=== PATIENT | male | born 1970 | race Caucasian/White ===

== ENCOUNTER → 2019-05-29 | Outpatient (CLI) | payer MEDICAID | LOC: COL.RAD 10:08 | DX: R44.3 Hallucinations, unspecified (principal); R25.2 Cramp and spasm; G93.9 Disorder of brain, unspecified; J34.89 Other specified disorders of nose and nasal sinuses ==

== ENCOUNTER → 2019-06-02 | Outpatient (CLI) | payer MEDICAID ==
--- NOTE | 2019-06-02 14:21 | NUR ---
Patient was innapropriate today during EEG exam. Patient took off shirt, although it was not necessary. Patient then made inappropriate comments about which part of his brain dealt with growth and that he was feeling good energy. Patient after light shut off placed hands on genital area and unbuttoned pants. Patient was never threatening or aggressive. However, if this patient comes into outpatient diagnostics again I do not feel comfortable completing his exam alone. Talked to both scheduling and security today regarding this patient and flagging his chart, he had similar inappropriate behavior in MRI yesterday and tech had a Male tech come sit with her during procedure. Mitchell Garcia, WEED SPRAYER
== END ==
LOC: COL.CARD 12:34
DX: R44.3 Hallucinations, unspecified (principal); R25.2 Cramp and spasm

== ENCOUNTER 2021-11-30 00:50 | Inpatient (IN) | payer MEDICARE, MEDICAID ==
[~2021-11-30] VITALS: Ht 170.2 cm; Wt 83.4 kg
[2021-11-30] VITALS (1243 sets, daily range): BP systolic 108–136; BP diastolic 73–91; PULSE 63–76; TEMP 97.5–98.1; O2SAT 77–100
[2021-11-30 03:23] LABS: ARTERIAL BLD GAS O2 SATURATION 99.4 % (92-100); ARTERIAL BLOOD GAS BASE EXCESS -2.4 (-2-2); ARTERIAL BLOOD GAS HCO3 22.4 meq/L (22-26); ARTERIAL BLOOD GAS PCO2 38.7 mmHg (35-45); ARTERIAL BLOOD GAS PO2 457.8 mmHg (80-100); ARTERIAL BLOOD GAS pH 7.38 (7.35-7.45)
[2021-11-30 06:08] LABS: BASO % 0.4 % (0.0-2.0); EOS # 0.4 K/mm3 (0.0-0.7); EOS % 3.8 % (0.0-4.0); GRAN # 6.2 K/mm3 (1.4-6.5); GRAN % 62.5 % (42.2-75.2); HEMATOCRIT 42.3 % (42.0-52.0); HEMOGLOBIN 13.8 g/dl (13.5-18.0); LYMPH # 2.5 K/mm3 (1.2-3.4); LYMPH % 25.2 % (20.0-51.0); MEAN CELL VOLUME 94 fl (80.0-100.0); MEAN CORPUSCULAR HEMOGLOBIN 31 pg (27-31); MEAN CORPUSCULAR HGB CONC 33 g/dl (33.0-37.0); MEAN PLATELET VOLUME 9.5 fl (7.4-10.4); MONO # 0.8 K/mm3 (0.1-0.6); MONO % 7.8 % (1.7-9.3); PLATELET COUNT 280 K/mm3 (130-400); RED BLOOD COUNT 4.52 M/mm3 (4.20-5.60); REDCELL DISTRIBUTION WIDTH-CV 13.3 % (11.5-14.5)
[2021-11-30 06:30] LABS: ALBUMIN 3.1 gm/dL (3.5-5.0); BILIRUBIN,TOTAL 0.6 mg/dL (0.2-1.2); CALCIUM 8.4 mg/dL (8.4-10.2); CREATININE, serum 0.84 mg/dL (0.72-1.25); MAGNESIUM 1.9 mg/dL (1.6-2.6); POTASSIUM 4.4 mmol/L (3.5-4.5); TOTAL PROTEIN 5.6 gm/dL (6.2-8.1)
--- NOTE | 2021-11-30 09:57 | NUR ---
The patient is intubated an on the ventilator after a propanolol overdose. It is unknown if the overdose was intentional or accidental. The patient's mother, Maira (ph#[phone]), is at bedside. BALA met with Maira to complete intake. The patient lives in [place] with his mother, Maira. Maira reports that the patient is independent with ADLs and does not have any DME. She states that the patient's PCP was Dr. Kyle Bobo, but that the patient has not seen Dr. Bobo in a very long time. She states that Dr. Bobo told the patient he is no longer his patient, due to this. She states that he has not seen anyone or been established with anyone since. The patient does receive mental health services for his schizophrenia at [facility] in and they prescribe him his psych medications. He receives those at [facility] in . Maira reports that the patient does not have a DPOA-HC. She states that the patient is still legally , but that they are . His 's name is Blanca Oneill (ph#[phone]). Maira states that the patient has five children. They are 21, 14, 12, 9, and 6-years old. The 21-year-old is Jesús and the patient adopted him before he Blanca. BALA informed Maira that Blanca would be the patient's legal next of kin, since they are still . Maira verbalized understanding and states that Blanca and the patient still get along and have a relationship and she gets along with Blanca too. BALA contacted Blanca to inform her that she is the patient's legal next of kin. Blanca verbalized understanding and states that she is okay with this and making decisions for the patient. She states that she will be up to the hospital soon to visit the patient. BALA updated the patient's RN about Blanca being the legal next of kin and provided her phone number in the chart. The patient's mother requested Bean Picker Machine Operator services. BALA notified Bean Picker Machine Operator Lashay. BALA to continue to follow. *Discharge plan: Undetermined at this time*
--- NOTE | 2021-11-30 10:09 | NUR ---
THIS AM PATIENT GRIMACES TO PAIN AND RAISES EYEBROWS WHEN ASKED TO OPEN EYES. PATIENT DOES NOT FOLLOW COMMANDS. ON MINIMAL SEDATION. VSS. ANNY STRONG, BEDSIDE AND RECEIVES UPDATES FROM DR. NAVA AND THIS RN. VISITING POLICY REVIEWD.
--- NOTE | 2021-11-30 10:23 | NUR ---
Initial visit; Patient unable to talk due to Ventilator however his mother requested a visit. Decorator Hand listened and asked questions regarding Hever and what brought him to the hospital. She states he is Schizophrenic and noted that his meds for the week were all taken out of his pill container and last night he was stumbling and falling. His family; and three children live elsewhere and he is unable to take care of them or himself physically or financially. His mother called the ambulance last night because of his stumbling and has concerns about his care home care. Decorator Hand suggests she talk with Physician and Insurance Producer. Also, she gave Maira (Mom) her card for future Spiritual Care.
--- NOTE | 2021-11-30 15:06 | NUR ---
The patient's RN notified BALA that the patient's mother informed her that the patient is suppose to have court tomorrow. His mother has the deck and hull assembler's name and phone number. Lawanda at [employer] [phone]. BALA contacted Lawanda at [employer]. Lawanda confirms that the patient is suppose to have court tomorrow and they just need a letter from the hospital to provide to the probate judge. BALA completed a note of hospitalization and emailed it to Lawanda at [email or web address].
[2021-11-30 17:33] LABS: BILIRUBIN,TOTAL 0.8 mg/dL (0.2-1.2); CREATININE, serum 0.74 mg/dL (0.72-1.25); TOTAL PROTEIN 5.4 gm/dL (6.2-8.1)
--- NOTE | 2021-11-30 21:16 | NUR ---
BEDSIDE SHIFT REPORT RECIEVED FROM LANDON MARTIN. PT CURRENTLY IN BED VENTED/SEDATED. VENT SETTINGS ACCURATE TO REPORT. ALL LINES RUNNING APPROPRIATELY (SEE DRIP FLOW SHEET). ACOSTA DRAINING APPROPRIATELY. VSS, NO ACUTE CHANGES AT THIS TIME.
[2021-12-01] VITALS (1433 sets, daily range): BP systolic 108–136; BP diastolic 71–92; PULSE 75–107; TEMP 97.8–98.7; O2SAT 90–100
[2021-12-01 05:09] LABS: ARTERIAL BLD GAS O2 SATURATION 97.4 % (92-100); ARTERIAL BLD GAS TCO2 CT 23.1; ARTERIAL BLOOD GAS BASE EXCESS -2.4 (-2-2); ARTERIAL BLOOD GAS PCO2 37.1 mmHg (35-45); ARTERIAL BLOOD GAS PO2 94.2 mmHg (80-100); ARTERIAL BLOOD GAS pH 7.39 (7.35-7.45)
--- NOTE | 2021-12-01 05:13 | NUR ---
NO FORMAL SEDATION VACATION. PT BECAME INCREASINGLY AGGITATED AND ALERT THROUGHOUT THE NIGHT, VERSED INCREASED WITH POSITIVE EFFECT
[2021-12-01 06:11] LABS: BASO % 0.4 % (0.0-2.0); EOS # 0.3 K/mm3 (0.0-0.7); EOS % 2.7 % (0.0-4.0); GRAN # 8.5 K/mm3 (1.4-6.5); GRAN % 75.8 % (42.2-75.2); HEMATOCRIT 41.7 % (42.0-52.0); HEMOGLOBIN 13.9 g/dl (13.5-18.0); LYMPH # 1.5 K/mm3 (1.2-3.4); LYMPH % 13.1 % (20.0-51.0); MEAN CELL VOLUME 92 fl (80.0-100.0); MEAN CORPUSCULAR HEMOGLOBIN 31 pg (27-31); MEAN CORPUSCULAR HGB CONC 33 g/dl (33.0-37.0); MEAN PLATELET VOLUME 9.6 fl (7.4-10.4); MONO # 0.9 K/mm3 (0.1-0.6); MONO % 7.7 % (1.7-9.3); PLATELET COUNT 252 K/mm3 (130-400); RED BLOOD COUNT 4.55 M/mm3 (4.20-5.60); REDCELL DISTRIBUTION WIDTH-CV 13.3 % (11.5-14.5)
[2021-12-01 06:24] LABS: ALBUMIN 2.9 gm/dL (3.5-5.0); BILIRUBIN,TOTAL 0.9 mg/dL (0.2-1.2); CREATININE, serum 0.68 mg/dL (0.72-1.25); MAGNESIUM 1.6 mg/dL (1.6-2.6); POTASSIUM 3.7 mmol/L (3.5-4.5); TOTAL PROTEIN 5.5 gm/dL (6.2-8.1)
--- NOTE | 2021-12-01 07:28 | NUR ---
PT IS FULLY AWAKE AND FOLLOWING COMMANDS OF RT. PT WAS PLACED ON CPAP TRIAL OF 8/5 30% AT THIS TIME. PT IS TOLERATING TRIAL WELL AND PULLING VT OF 350-500 AT A RATE OF 12-15. WILL LEAVE PT ON TRIAL TOLERATED OR DIRECTED OTHERWISE.
--- NOTE | 2021-12-01 10:38 | NUR ---
The patient is to be extubated today. The hospitalist notified SW that the patient will need to be screened by [facility], once medically cleared. SW to continue to follow.
--- NOTE | 2021-12-01 11:02 | NUR ---
RT CALLED TO BEDSIDE FOR EXTUBATION PER DR. NAVA, PT EXTUBATED AT 1040. PT PLACED ON 2L NC FOR DESATURATION, PT EFFORT IS ADEQUATE, SECRETIONS ARE MODERATE BUT PATIENT IS ABLE TO EXPECTORATE AND MAINTAIN AIRWAY
--- NOTE | 2021-12-01 11:02 | NUR ---
1040 - PT EXTUBATED WITH RT AND 2 RNS BEDSIDE. PT PLACED ON 2L NC. PT ASKED IF REMEMBERED TAKING PILLS. PATIENT SAID "YES, I WAST TRYING TO CATCH UP" WHEN ASKED WHAT KIND OF PILLS THE PATIENT STATED "MY PRESCRIBED MEDS". PT IS DROWSY AND QUICKLY FELL ASLEEP AND IS CURRENTLY NAPPING WITH HIS MOM IN ROOM BEDSIDE.
[2021-12-01] MEDS ORDERED: SEROQUEL300 MG PO (16:48)
[2021-12-01] MEDS ORDERED: CYMBALTA 60MG60 MG PO (16:49)
[2021-12-01] MEDS ORDERED: INDERAL 10MG10 MG PO (16:50)
[2021-12-01 17:21] LABS: ALBUMIN 3.3 gm/dL (3.5-5.0); BILIRUBIN,TOTAL 0.8 mg/dL (0.2-1.2); CALCIUM 8.5 mg/dL (8.4-10.2); CREATININE, serum 0.67 mg/dL (0.72-1.25); POTASSIUM 3.7 mmol/L (3.5-4.5); TOTAL PROTEIN 6.4 gm/dL (6.2-8.1)
[2021-12-02] VITALS (1279 sets, daily range): BP systolic 98–122; BP diastolic 59–77; PULSE 72–88; TEMP 98.4–98.7; O2SAT 88–100
[2021-12-02 05:39] LABS: BASO % 0.5 % (0.0-2.0); EOS # 0.3 K/mm3 (0.0-0.7); EOS % 3.8 % (0.0-4.0); GRAN # 5.8 K/mm3 (1.4-6.5); GRAN % 65.9 % (42.2-75.2); HEMATOCRIT 39.8 % (42.0-52.0); HEMOGLOBIN 13.8 g/dl (13.5-18.0); LYMPH # 1.8 K/mm3 (1.2-3.4); LYMPH % 20.1 % (20.0-51.0); MEAN CELL VOLUME 88 fl (80.0-100.0); MEAN CORPUSCULAR HEMOGLOBIN 31 pg (27-31); MEAN CORPUSCULAR HGB CONC 35 g/dl (33.0-37.0); MEAN PLATELET VOLUME 9.2 fl (7.4-10.4); MONO # 0.8 K/mm3 (0.1-0.6); MONO % 9.4 % (1.7-9.3); PLATELET COUNT 245 K/mm3 (130-400); RED BLOOD COUNT 4.51 M/mm3 (4.20-5.60); REDCELL DISTRIBUTION WIDTH-CV 13.2 % (11.5-14.5)
[2021-12-02 06:14] LABS: ALBUMIN 2.8 gm/dL (3.5-5.0); BILIRUBIN,TOTAL 0.6 mg/dL (0.2-1.2); CALCIUM 8.6 mg/dL (8.4-10.2); CREATININE, serum 0.71 mg/dL (0.72-1.25); TOTAL PROTEIN 5.6 gm/dL (6.2-8.1)
[2021-12-02 06:59] LABS: MAGNESIUM 1.9 mg/dL (1.6-2.6)
--- NOTE | 2021-12-02 07:43 | NUR ---
RECEIVED BEDSIDE SHIFT REPORT FROM LANDON EDMOND. PATIENT IS IN BED RESTING WITH EYES CLOSED. VITAL SIGNS STABLE. TV IS ON. PATIENT HAS NORMAL SALINE GOING AND CALL BUTTON IS WITHIN REACH.
--- NOTE | 2021-12-02 08:04 | NUR ---
PATIENT'S SISTER AND MOTHER AT BEDSIDE. WAITING FOR WHEN PAWNEE SCREEN SHOULD OCCUR.
--- NOTE | 2021-12-02 08:30 | NUR ---
SPOKE TO PATIENT'S MOTHER PRIVATELY REGARDING HER RESERVATIONS BEING UNCOMFORTABLE LIVING WITH HIM AND WANTING HIM TO BE IN AN INPATIENT REHABILITATION FACILITY.
--- NOTE | 2021-12-02 09:13 | NUR ---
Max with ICU desk informs patient family member is requesting to speak to this Supervisor [employer]estock [employer]. Social Work to meet with patient family.
--- NOTE | 2021-12-02 10:00 | NUR ---
DR. GARCIA AT BEDSIDE. MEDICALLY CLEARED PATIENT AND IS OKAY WITH WESLEYE SCREEN FOR TODAY. THIS NURST WILL BE CALLING TO FAX INFORMATION OVER.
--- NOTE | 2021-12-02 10:05 | NUR ---
CALLED PARKER SCREENER FOR WHICH INFORMATION WAS NEEDED FOR FAXING OVER. WILL NEED NEGATIVE COVID TEST.
--- NOTE | 2021-12-02 10:15 | NUR ---
ORDER PLACED FOR COVID TEST ON PATIENT. WAITING FOR RESULTS TO FAX ALL INFORMATION NEEDED AT ONCE.
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
--- NOTE | 2021-12-02 13:16 | NUR ---
PARKER DONE SCREENING PATIENT AND HAD A CONVERSATION WITH FAMILY WELL. PATIENT IS AGREEABLE TO INPATIENT CARE. WILL KEEP THIS NURSE UPDATED ON A LOCATION OF FACILITY TO ACCEPT PATIENT.
[2021-12-02 17:32] LABS: ALBUMIN 2.8 gm/dL (3.5-5.0); BILIRUBIN,TOTAL 0.3 mg/dL (0.2-1.2); CALCIUM 8.4 mg/dL (8.4-10.2); CREATININE, serum 0.75 mg/dL (0.72-1.25); POTASSIUM 4.1 mmol/L (3.5-4.5)
[2021-12-03] VITALS (758 sets, daily range): BP systolic 95–108; BP diastolic 60–70; PULSE 64–104; TEMP 97.6–98.5; O2SAT 84–100
--- NOTE | 2021-12-03 06:14 | NUR ---
PATIENT HAS RESTED QUIETLY THIS SHIFT WITH NO ADVERSE BEHAVIORS, CALM AND COOPERATIVE WITH ALL CARES, ACCEPTING OF MEDICATIONS GIVEN EARLIER IN SHIFT, VITAL SIGNS WNL, DENIES PAIN DECLINES ANY ADDITIONAL NEEDS AT THIS TIME.
[2021-12-03 07:10] LABS: BASO # 0.1 K/mm3 (0.0-0.2); BASO % 0.7 % (0.0-2.0); EOS # 0.4 K/mm3 (0.0-0.7); GRAN # 4.2 K/mm3 (1.4-6.5); GRAN % 57.3 % (42.2-75.2); HEMATOCRIT 40.4 % (42.0-52.0); LYMPH # 1.9 K/mm3 (1.2-3.4); LYMPH % 26.5 % (20.0-51.0); MEAN CELL VOLUME 89 fl (80.0-100.0); MEAN CORPUSCULAR HEMOGLOBIN 31 pg (27-31); MEAN CORPUSCULAR HGB CONC 35 g/dl (33.0-37.0); MEAN PLATELET VOLUME 9.4 fl (7.4-10.4); MONO # 0.7 K/mm3 (0.1-0.6); MONO % 9.2 % (1.7-9.3); PLATELET COUNT 235 K/mm3 (130-400); RED BLOOD COUNT 4.56 M/mm3 (4.20-5.60); REDCELL DISTRIBUTION WIDTH-CV 13.3 % (11.5-14.5)
--- NOTE | 2021-12-03 07:31 | NUR ---
RECEIVED BEDSIDE SHIFT REPORT FROM LANDON EDMOND. PATIENT IS LYING IN BED WITH EYES CLOSED. VITAL SIGNS STABLE. CALL LIGHT WITHIN REACH. AWAITING PLACEMENT TO INPATIENT FACILITY THROUGH [facility].
[2021-12-03 07:33] LABS: ALBUMIN 2.8 gm/dL (3.5-5.0); BILIRUBIN,TOTAL 0.4 mg/dL (0.2-1.2); CALCIUM 8.6 mg/dL (8.4-10.2); CREATININE, serum 0.74 mg/dL (0.72-1.25); MAGNESIUM 1.9 mg/dL (1.6-2.6); POTASSIUM 3.9 mmol/L (3.5-4.5); TOTAL PROTEIN 6.1 gm/dL (6.2-8.1)
--- NOTE | 2021-12-03 10:30 | NUR ---
DR. JUAREZ AT BEDSIDE. DISCUSSED PLAN OF CARE. AWAITING PLACEMENT TO FACILITY STILL. NO CONCERNS AT THIS TIME
--- NOTE | 2021-12-03 15:45 | NUR ---
RECEIVED A CALL FROM ELODIA FROM [facility]. THEY HAVE A BED TO RECEIVE THE PATIENT. WILL CONTACT INSTITUTIONAL NUTRITION CONSULTANT TO HANDLE TRANSPORTATION. WILL BE CALLING HOSPITALIST TO SIGN PAPER WORK.
--- NOTE | 2021-12-03 17:00 | NUR ---
SPOKE TO RE HERNANDEZ REGARDING PATIENT PLACEMENT. THEY ARE DENYING HIM BECAUSE HE HAS STATED THAT HE WILL NOT VOLUNTARILY GO TO A FACILITY.
--- NOTE | 2021-12-03 17:12 | NUR ---
CALLED PARKER TO RESCREEN PATIENT FOR SAFETY PLAN FOR PATIENT SINCE HE DOES NOT WISH TO VOLUNTARILY GO TO A FACILITY.
--- NOTE | 2021-12-03 17:15 | NUR ---
HAD TALK WITH PATIENT REGARDING VOLUNTARILY CHECKING INTO [facility] AND THEIR POLICIES/ HOW HE WOULD BE TRANSPORTED AND HOW WE WOULD BE ABLE TO GIVE HIM HIS PERSONAL EFFECTS. PATIENT IS NOW STATING THAT GOING HOME IS WHAT HE WISHES TO DO WITH HIS MOTHER. STATES HE IS CONCERNED FOR HER BECAUSE OF HER ADVANCED AGE.
--- NOTE | 2021-12-03 18:05 | NUR ---
[facility]. SHE FAXED OVER A SAFETY PLAN FOR PATIENT TO GO HOME.
--- NOTE | 2021-12-03 18:06 | NUR ---
SPOKE TO PATIENT ABOUT SAFETY PLAN. VERBALIZES UNDERSTANDING.
--- NOTE | 2021-12-03 19:44 | NUR ---
BEDSIDE SHIFT REPORT RECEIVED FROM RN. PT CURRENTLY RESTING IN BED AWAITING DISCHARGE. NO LINES. VSS. NO ACUTE CHANGES AT THIS TIME
--- NOTE | 2021-12-03 19:46 | NUR ---
MULTIPLE PHONE CALLS RECEIVED FROM FREINDS AND FAMILY EXPRESSING CONCERN FOR PTS SAFTEY WITH DISCHARGE. PARKER HAS SCREENED THE PT AND FOUND HIM TO BE OF NO RISK OF HARM TO HIMSELF OR OTHERS. WITH SAFETY PLAN IN PLACE. DURING THIS HOSPITAL STAY NO COMMENTS HAVE BEEN MADE BY THE PATIENT THAT WOULD INDICATE CURRENT SUICIDAL IDEATION. PT HAS BEEN CALM, COOPERATIVE AND PLEASENT.
--- NOTE | 2021-12-03 20:29 | NUR ---
PATIENT'S MOTHER AND SISTER HAVE BOTH CALLED AND SPOKE TO PATIENT THIS SHIFT, PATIENT HAS BEEN APPROPRIATE DURING CONVERSATIONS NEVER RAISING HIS VOICE OR DISPLAYING ANY AGGRESSIVE TYPE OF BEHAVIORS. SHEN NURSE HAS HAD CONVERSATIONS WITH PATIENT'S SISTER AND MOTHER ABOUT PATIENT DISCHARGE AND THAT PER THEM PARKER HAD INTITIALLY SCREENED HIM TO BE AN INVOLUNTARY INPATIENT PATIENT, CALLED FIELD HEALTH OFFICER FOR DIRECTION STATED TO CALL PARKER FOR RESCREEN, PHONED PARKER AND SPOKE WITH FRANCISCO WHO STATED THAT PATIENT'S CASE WAS CLOSED AND GAVE ITEMS THAT WOULD NEED TO BE OBTAINED FOR RESCREEN, PREPARED ITEMS BUT THEN RECEIVED PHONE CALL FROM STEPHY WHO STATED THAT PATIENT WAS SCREENED WITHIN PREVIOUS 24 HOURS AND ALSO THAT HE WAS NEVER AN INVOLUNTARY INPATIENT CANDIDATE BUT THAT SHE HAD NOT CANCELLED THE VOLUNTARY HOSPITALIZATION YET IF HE STILL WANTED THAT OPTION, OR HE COULD GO HOME WITH SAFTEY PLAN PREVIOUSLY DISCUSSED. ENTERED PATIENT ROOM WITH HIS NURSE MATT' PATIENT IS ALERT AND ORIENTED LAYING CALMLY IN BED, PATIENT GIVEN OPTIONS, TO BE A VOLUTARY INPATIENT IN A PSYCHIATRIC HOSPITAL OR TO GO HOME WITH PREVIOUS SAFTEY PLAN PATIENT STATES THAT LONG HE CAN GET A RIDE HOME HE WANTS TO GO THERE. PATIENT PROVIDED ADDRESS THAT HE WANTED TO GO TO, OFFERED TO CALL FAMILY FOR PATIENT AND HE REFUSES NOTIFICATION OF ANYONE.
== END 2021-12-03 20:45 | disposition home or self-care (01) | DRG 917 ==
LOC: IMCU 00:50 → ICU 02:45
PROVIDERS: Internal Medicine; ADMIT Student in an Organized Health Care Education/Training Program
PROC: 5A1945Z Respiratory Ventilation, 24-96 Consecutive Hours (ICD-10-PCS; principal; 2021-11-30)
PROC: 0BH17EZ Insertion of Endotracheal Airway into Trachea, Via Natural or Artificial Opening (ICD-10-PCS; 2021-11-30)
DX: T44.7X1A Poisoning by beta-adrenoreceptor antagonists, accidental (unintentional), initial encounter (principal); J96.01 Acute respiratory failure with hypoxia; G92.9 Unspecified toxic encephalopathy; F20.9 Schizophrenia, unspecified; Z20.822 Contact with and (suspected) exposure to COVID-19
CPT/HCPCS: 99223-AI; 99232-AI; C9113; J2250; J3010; J7030